=== PATIENT | male | born 1975 | race Hispanic/Latino ===

== ENCOUNTER 2017-11-01 21:32 | Emergency (ER) | payer MEDICAID, MEDICARE ==
[2017-11-01 21:32] VITALS: BMI 28.8
[2017-11-01 21:49] VITALS: BP 115/74; PULSE 94; TEMP 98.1; O2SAT 96
--- NOTE | 2017-11-01 23:12 | C.PDOC ---
Time Seen by Provider: 11/01/17 22:50 Chief Complaint (Nursing): Seizure History Per: Patient Recent Seizure Activity Began: Just Before Arrival Number Of Seizures: One Length Of Seizures (Duration): Seconds (few) Quality Of Seizure: Generalized Precipitating Factor(s): Missed Dose Of Anti-seizure Medication Post-ictal Period: No Severity: Moderate Additional History Per: Prior Records Past Medical History Reviewed: Historical Data, Nursing Documentation, Vital Signs Vital Signs: Last Vital Signs Temp 98.1 F 11/01/17 21:45 Pulse 94 H 11/01/17 21:45 Resp 20 11/01/17 21:45 BP 115/74 11/01/17 21:45 Pulse Ox 96 11/01/17 21:45 - Medical History PMH: Anxiety, Bipolar Disorder, Depression, Post Traumatic Stress Disorder, Schizophrenia, Seizures Surgical History: Tonsillectomy - [facility] Procedures INDIVID PSYCHOTHERAP NEC (09/03/14) INJECT/INFUSE NEC (10/25/13) OTHER GROUP THERAPY (09/03/14) PSYCHIA INTERV/EVAL NEC (09/23/14) PSYCHIAT DRUG THERAP NEC (11/09/13) Family History: States: Unknown Family Hx - Social History Hx Tobacco Use: Yes Hx Alcohol Use: No Hx Substance Use: No - Immunization History Hx Tetanus Toxoid Vaccination: Yes Hx Influenza Vaccination: Yes Hx Pneumococcal Vaccination: Yes Review Of Systems Except As Marked, All Systems Reviewed And Found Negative. Constitutional: Negative for: Fever, Weakness Cardiovascular: Negative for: Chest Pain Respiratory: Negative for: Shortness of Breath Gastrointestinal: Negative for: Vomiting, Abdominal Pain Musculoskeletal: Negative for: Neck Pain Skin: Negative for: Rash Neurological: Negative for: Weakness, Numbness Psych: Negative for: Suicidal ideation Physical Exam - Physical Exam Appears: Non-toxic, No Acute Distress Skin: Normal Color, Warm, Dry, No Rash Head: Atraumatic, Normacephalic Eye(s): bilateral: PERRL, EOMI Tongue: No Bite Neck: Normal ROM, No Midline Cervical Tenderness, No Step Off Deformity, Supple Cardiovascular: Rhythm Regular Respiratory: Normal Breath Sounds, No Accessory Muscle Use Gastrointestinal/Abdominal: Soft, No Tenderness Extremity: Normal ROM Neurological/Psych: Oriented x3, Normal Speech, Normal Cognition, Normal Motor, Normal Sensation ED Course And Treatment O2 Sat by Pulse Oximetry: 96 Pulse Ox Interpretation: Normal Progress Note: I ordered labs on pt, but I was informed that the pt walked out during evaluation before labs were sent. Disposition - Disposition Disposition: ELOPEMENT - ER ONLY Disposition Time: 23:00 Condition: UNKNOWN - Clinical Impression Clinical Impression: Patient left before treatment completed, Seizure
[2017-11-01 23:13] VITALS: RESP 17
== END 2017-11-01 23:12 | disposition left against medical advice (07) ==
LOC: C.ER 21:32
DX: Z02.89 Encounter for other administrative examinations (principal); R56.9 Unspecified convulsions; F20.9 Schizophrenia, unspecified; Z72.0 Tobacco use

== ENCOUNTER 2017-11-08 23:21 | Emergency (ER) | payer MEDICAID, MEDICARE, OTHER ==
[2017-11-08 23:22] VITALS: BMI 28.8
[2017-11-08 23:31] VITALS: BP 116/80; PULSE 86; TEMP 97.7; O2SAT 98
--- NOTE | 2017-11-09 00:17 | C.PDOC ---
History Of Present Illness 41 year old male pres Time Seen by Provider: 11/09/17 00:16 Chief Complaint (Nursing): Substance Abuse Past Medical History Vital Signs: Last Vital Signs Temp 97.7 F 11/08/17 23:26 Pulse 86 11/08/17 23:26 Resp 20 11/08/17 23:26 BP 116/80 11/08/17 23:26 Pulse Ox 98 11/08/17 23:26 - Medical History PMH: Anxiety, Bipolar Disorder, Depression, Post Traumatic Stress Disorder, Schizophrenia, Seizures Denies: Diabetes, Hepatitis, HIV, HTN, Chronic Kidney Disease, Sexually Transmitted Disease Surgical History: Tonsillectomy - [facility] Procedures INDIVID PSYCHOTHERAP NEC (09/03/14) INJECT/INFUSE NEC (10/25/13) OTHER GROUP THERAPY (09/03/14) PSYCHIA INTERV/EVAL NEC (09/23/14) PSYCHIAT DRUG THERAP NEC (11/09/13) Family History: States: Unknown Family Hx - Social History Hx Tobacco Use: Yes Hx Alcohol Use: No Hx Substance Use: Yes - Immunization History Hx Tetanus Toxoid Vaccination: Yes Hx Influenza Vaccination: Yes Hx Pneumococcal Vaccination: Yes ED Course And Treatment O2 Sat by Pulse Oximetry: 98 Disposition - Disposition Forms: [employer] (Spanish)
--- NOTE | 2017-11-09 00:17 | C.PDOC ---
History Of Present Illness 41 year old male presents to the ED requesting detox for meth abuse. Patient was informed that no detox beds were available at this time. Crisis saw and evaluated patient, given out patient clinics and resources for patient to follow up with. Patient denies SI/HI, hallucinations. Time Seen by Provider: 11/09/17 00:16 Chief Complaint (Nursing): Substance Abuse History Per: Patient History/Exam Limitations: no limitations Onset/Duration Of Symptoms: Hrs Current Symptoms Are (Timing): Still Present Suicide/Self Injury Attempted (Context): None Modifying Factor(s): Other (Meth) Severity: None Associated Symptoms: denies: Depression, Suicidal Thoughts, Suicidal Plan Involuntary Hold By: None Recent travel outside of the [place]: No Additional History Per: Patient Past Medical History Reviewed: Historical Data, Nursing Documentation, Vital Signs Vital Signs: Last Vital Signs Temp 97.7 F 11/08/17 23:26 Pulse 86 11/08/17 23:26 Resp 20 11/08/17 23:26 BP 116/80 11/08/17 23:26 Pulse Ox 98 11/09/17 00:22 - Medical History PMH: Anxiety, Bipolar Disorder, Depression, Post Traumatic Stress Disorder, Schizophrenia, Seizures Denies: Diabetes, Hepatitis, HIV, HTN, Chronic Kidney Disease, Sexually Transmitted Disease Surgical History: Tonsillectomy - [facility] Procedures INDIVID PSYCHOTHERAP NEC (09/03/14) INJECT/INFUSE NEC (10/25/13) OTHER GROUP THERAPY (09/03/14) PSYCHIA INTERV/EVAL NEC (09/23/14) PSYCHIAT DRUG THERAP NEC (11/09/13) Family History: States: Unknown Family Hx - Social History Hx Tobacco Use: Yes Hx Alcohol Use: No Hx Substance Use: Yes - Immunization History Hx Tetanus Toxoid Vaccination: Yes Hx Influenza Vaccination: Yes Hx Pneumococcal Vaccination: Yes Review Of Systems Constitutional: Negative for: Fever, Chills Cardiovascular: Negative for: Chest Pain Respiratory: Negative for: Shortness of Breath Gastrointestinal: Negative for: Vomiting Skin: Negative for: Rash Psych: Negative for: Depression, Suicidal ideation Physical Exam - Physical Exam Appears: Non-toxic, No Acute Distress Skin: Warm, Dry Head: Normacephalic, Other (tattoo on forehead) Eye(s): bilateral: Normal Inspection Neck: Supple Chest: Symmetrical Extremity: Normal ROM Neurological/Psych: Oriented x3, Normal Speech Gait: Steady Additional Physical Exam Comments: After patient was notified that no detox beds were available, patient refused to be examined ED Course And Treatment O2 Sat by Pulse Oximetry: 98 (ON RA) Pulse Ox Interpretation: Normal Disposition Counseled Patient/Family Regarding: Studies Performed, Diagnosis, Need For Followup - Disposition Referrals: [facility] / [facility] [Outside] Disposition: HOME/ ROUTINE Disposition Time: 00:16 Condition: FAIR Instructions: Polysubstance Abuse (DC) Forms: [employer] ([place]) - Clinical Impression Clinical Impression: Drug abuse - Scribe Statement The provider has reviewed the documentation as recorded by the Scribe Paulie Morales All medical record entries made by the Scribe were at my direction and personally dictated by me. I have reviewed the chart and agree that the record accurately reflects my personal performance of the history, physical exam, medical decision making, and the department course for this patient. I have also personally directed, reviewed, and agree with the discharge instructions and disposition.
[2017-11-09 01:05] VITALS: RESP 18
== END 2017-11-09 00:51 | disposition home or self-care (01) ==
LOC: C.ER 23:21
DX: F19.10 Other psychoactive substance abuse, uncomplicated (principal)